=== PATIENT | male | born 1940 | race Caucasian/White ===

== ENCOUNTER 2018-12-12 06:58 | Emergency (ER) | payer OTHER ==
[~2018-12-12] VITALS: Ht 180.3 cm; Wt 100.0 kg
[~2018-12-12 06:58] MED LIST: AMOXICILLIN500 MG OR; ATENOLOL25 MG PO; BL ADULT ASA81 MG PO; HYZAAR1 TA1 PO; NAPROSYN500 MG PO; NITROSTAT0.4 MG PO; PRAVASTATIN10 MG PO; SYNTHROID100 MCG PO; ULTRAM50 M1 PO
[2018-12-12] MEDS ORDERED: VITAMI17 PO (07:24)
[2018-12-12] MEDS ORDERED: AMLODIPINE2.5 MG PO (07:24)
[2018-12-12] MEDS ORDERED: SYNTHROID25 MCG PO (07:25)
[2018-12-12] MEDS ORDERED: ATORVASTATIN CA20 MG PO (07:25)
[2018-12-12 07:28] LABS: HEMATOCRIT 47.7 % (39.0-50.0); HEMOGLOBIN 16.4 g/dl (14.0-18.0); IMMATURE GRANULOCYTES 0.3 % (0.0-5.0); MEAN CELL VOLUME 98.4 fL CALC (80.0-100.0); MEAN CORPUSCULAR HGB 33.8 pG CALC (26.0-32.0); MEAN CORPUSCULAR HGB CONC 34.4 g/L CALC (32.0-36.0); NEUT# 2.59 thou/uL (1.82-7.42); RED BLOOD COUNT 4.85 mill/uL (4.70-6.10); RED CELL DISTRI WIDTH 12.3 % (11.5-15.5)
[2018-12-12] MEDS ORDERED: PREVACID15 M3 PO (07:28)
[2018-12-12 07:37] LABS: ALKALINE PHOSPHATASE 72 u/l (38-126); ANION GAP 14 (6-22 (CALC)); BILIRUBIN, TOTAL 1.5 mg/dL (0.0-1.4); BUN 14 mg/dL (8-23); BUN/CREATININE RATIO 16 (12-20 (CALC)); CARBON DIOXIDE 25 mmol/l (22-30); CHLORIDE 105 mmol/l (95-108); CREATININE 0.9 mg/dL (0.7-1.3); GFR > 60 ML/MIN (>=60 (CALC)); GFR FOR AFR.AMER. > 60 ML/MIN (>=60 (CALC)); LIPASE 92 u/l (23-300); POTASSIUM 4.1 mmol/l (3.5-5.1); SGOT/AST 28 u/l (19-48); SODIUM 140 mmol/l (137-146); TOTAL PROTEIN 6.4 g/dL (6.3-8.2)
[2018-12-12 08:17] LABS: URINE BILIRUBIN - DIPSTICK NEGATIVE (NEGATIVE); URINE BLOOD DIPSTICK NEGATIVE (NEGATIVE); URINE COLOR YELLOW; URINE GLUCOSE - DIPSTICK NEGATIVE (NEGATIVE); URINE KETONE NEGATIVE (NEGATIVE); URINE LEUK ESTERASE NEGATIVE (NEGATIVE); URINE NITRITE - DIPSTICK NEGATIVE (Negative); URINE PH 5.5 (4.5-8.0); URINE PROTEIN - DIPSTICK NEGATIVE (NEG-TRACE); URINE SPECIFIC GRAVITY 1.015; URINE UROBILINOGEN - DIPSTICK 0.2 E.U./dL (0.2)
[2018-12-12 11:57] VITALS: BP 119/57
== END 2018-12-12 11:57 | disposition short-term general hospital (02) | DRG 872 ==
LOC: ED 06:58
PROVIDERS: Family Medicine
DX: A41.9 Sepsis, unspecified organism (principal); R50.9 Fever, unspecified; R11.2 Nausea with vomiting, unspecified; I71.9 Aortic aneurysm of unspecified site, without rupture
CPT/HCPCS: Q9967